=== PATIENT | male | born 1995 ===

== ENCOUNTER 2019-09-13 11:38 | Outpatient (CLI) | payer OTHER | END 2019-09-13 11:40 | disposition home or self-care (01) | LOC: RAD 11:38 | DX: Z00.8 Encounter for other general examination (principal) ==

== ENCOUNTER 2020-11-07 19:03 | Emergency (ER) | payer OTHER ==
[~2020-11-07] VITALS: Ht 175.3 cm; Wt 81.6 kg
[2020-11-07] MEDS ORDERED: ZYRTEC10 MG PO (21:40)
[2020-11-07] MEDS ORDERED: ZITHROMAX500 MG PO (21:40)
[2020-11-07] MEDS ORDERED: MUCINEX COLD-F180 ML PO (21:40)
== END 2020-11-07 21:43 | disposition home or self-care (01) ==
LOC: ER 19:03
DX: J32.8 Other chronic sinusitis (principal); J00 Acute nasopharyngitis [common cold]; B34.9 Viral infection, unspecified; Z11.52 Encounter for screening for COVID-19

== ENCOUNTER 2022-05-01 02:34 | Emergency (ER) | payer OTHER ==
[~2022-05-01] VITALS: Ht 177.8 cm; Wt 79.4 kg
[~2022-05-01 02:34] MED LIST: MUCINEX COLD-F180 ML PO; ZITHROMAX500 MG PO; ZYRTEC10 MG PO
== END 2022-05-01 09:18 | disposition home or self-care (01) ==
LOC: ER 02:34
DX: B34.8 Other viral infections of unspecified site (principal); R50.9 Fever, unspecified; Z20.822 Contact with and (suspected) exposure to COVID-19

== ENCOUNTER 2022-07-11 09:04 | Emergency (ER) | payer OTHER ==
[~2022-07-11] VITALS: Ht 175.3 cm; Wt 76.2 kg
== END 2022-07-11 10:15 | disposition home or self-care (01) ==
LOC: ER 09:04
DX: S60.011A Contusion of right thumb without damage to nail, initial encounter (principal); X58.XXXA Exposure to other specified factors, initial encounter; Y93.89 Activity, other specified; Y92.89 Other specified places as the place of occurrence of the external cause; Y99.9 Unspecified external cause status; Z88.8 Allergy status to other drugs, medicaments and biological substances